=== PATIENT | male | born 1950 | race Two or more races ===

== ENCOUNTER 2021-11-18 22:57 | Inpatient (IN) | payer MEDICAID ==
[~2021-11-18] VITALS: Ht 170.2 cm; Wt 63.5 kg
--- NOTE | 2021-11-18 23:10 | NUR ---
Dr. Gonzales at bedside for MSE.
[2021-11-18] MEDS ORDERED: ONDANSETRON HCL 4 MG TABLET PO ONE (23:15)
[2021-11-18] MEDS ORDERED: ONDANSETRON 4 MG/2 ML VIAL IV ONE (23:30)
[2021-11-18] MEDS ORDERED: ONDANSETRON 4 MG/2 ML VIAL ONE (23:33)
--- NOTE | 2021-11-18 23:38 | NUR ---
Xray at bedside.
[2021-11-18 23:40] LABS: HEMATOCRIT 26.5 % (36.7-47.1); MEAN CORPUSCULAR HEMOGLOBIN 35.7 uug (23.8-33.4); MEAN CORPUSCULAR VOLUME 101.2 fL (73.0-96.2); PLATELET COUNT (AUTO) 100 K/uL (152-348)
[2021-11-18] MEDS ORDERED: PANTOPRAZOLE SODIUM IV 80 MG in IV DEXTROSE 5% 500 ML IV ONE (23:45)
[2021-11-18] MEDS ORDERED: PANTOPRAZOLE SODIUM IV 40 MG in IV DEXTROSE 5% 100 ML IV ONE (23:45)
--- NOTE | 2021-11-18 23:45 | NUR ---
Pt out of ER for CT.
[2021-11-18] MEDS ORDERED: PANTOPRAZOLE SODIUM 40 MG VIAL ONE ×2 (23:46→23:47)
[2021-11-18 23:54] LABS: ALANINE AMINOTRANSFERASE 38 U/L (16-63); ALKALINE PHOSPHATASE 204 U/L (50-136); ASPARTATE AMINOTRANSFERASE 42 U/L (15-37); BILIRUBIN,DIRECT 0.3 mg/dL (0.0-0.2); BILIRUBIN,TOTAL 0.7 mg/dL (0.2-1.0); CARBON DIOXIDE 24 mmol/L (21-32); CHLORIDE 107 mmol/L (98-107); CREATININE 1.2 mg/dL (0.6-1.3); GLUCOSE 186 mg/dL (74-106); TOTAL PROTEIN, SERUM 5.8 g/dL (6.4-8.2); UREA NITROGEN, BLOOD 30 mg/dL (7-18)
[2021-11-18 23:56] LABS: POTASSIUM 6.2 mmol/L (3.5-5.1)
[2021-11-19] MEDS ORDERED: GLIP5TAB13 PO (00:06)
[2021-11-19] MEDS ORDERED: SPIR50TA5 PO (00:06)
[2021-11-19] MEDS ORDERED: MAGN400T8 PO (00:06)
[2021-11-19] MEDS ORDERED: PROP20TA7 PO (00:06)
[2021-11-19] MEDS ORDERED: LACT10SO3 PO (00:06)
--- NOTE | 2021-11-19 00:13 | NUR ---
Paged Dr Cueva for nephrology consult.
[2021-11-19] MEDS ORDERED: OCTREOTIDE ACETATE DRIP 500 MCG in IV NORMAL SALINE 99 ML IV PRN (00:15)
[2021-11-19] MEDS ORDERED: IV NORMAL SALINE 1000 ML BAG IV ONE (00:15)
[2021-11-19] MEDS ORDERED: OCTREOTIDE ACETATE 100 MCG/1 MLVIAL IV ONE (00:15)
[2021-11-19] MEDS ORDERED: OCTREOTIDE ACETATE 50 MCG/1 ML ML ONE (00:52)
[2021-11-19] MEDS ORDERED: OCTREOTIDE ACETATE 500 MCG/1 ML VIAL ONE (00:52)
[2021-11-19] MEDS ORDERED: SODIUM POLYSTYRENE SULFONATE 15 G/60 ML LIQUID UDC PO ONE (01:30)
[2021-11-19] MEDS ORDERED: CALCIUM CHLORIDE 1 GM/10 ML DISP.SYRIN IVP ONE ×2 (01:30→01:42)
[2021-11-19] MEDS ORDERED: DEXTROSE 50% 50 ML DISP.SYRIN IV ONE (01:30)
[2021-11-19] MEDS ORDERED: SODIUM BICARBONATE 8.4% 50 MEQ/50 ML DISP.SYRIN IV ONE ×2 (01:30→01:42)
[2021-11-19] MEDS ORDERED: INSULIN REGULAR, HUMAN 300 UNIT/3 ML VIAL IV ONE (01:30)
--- NOTE | 2021-11-19 01:32 | NUR ---
Dr. Gonzales on panel call with Dr. Chan.
[2021-11-19] MEDS ORDERED: DEXTROSE 50% 50 ML DISP.SYRIN ONE (01:41)
[2021-11-19] MEDS ORDERED: INSULIN REGULAR, HUMAN 300 UNIT/3 ML VIAL ONE (01:41)
[2021-11-19] MEDS ORDERED: SODIUM POLYSTYRENE SULFONATE 15 G/60 ML LIQUID UDC ONE (01:44)
[2021-11-19] MEDS ORDERED: REMEDY ESSENTIAL ZINC PASTE 113 GM TP PRN (01:45)
[2021-11-19] MEDS: PANTOPRAZOLE SODIUM IV 80 MG in IV DEXTROSE 5% 500 ML IV SCH ×2 (01:45→08:00)
[2021-11-19] MEDS ORDERED: ONDANSETRON 4 MG/2 ML VIAL IV PRN (01:45)
[2021-11-19] MEDS ORDERED: MAGNESIUM HYDROXIDE 30 ML LIQUID UDC PO PRN (01:45)
[2021-11-19] MEDS ORDERED: ACETAMINOPHEN 325 MG TABLET PO PRN (01:45)
[2021-11-19 01:46] LABS: HEMATOCRIT 24.9 % (36.7-47.1); MEAN CORPUSCULAR VOLUME 101.8 fL (73.0-96.2); PLATELET COUNT (AUTO) 87 K/uL (152-348)
[2021-11-19 05:43] LABS: HEMATOCRIT 23.9 % (36.7-47.1); MEAN CORPUSCULAR HEMOGLOBIN 36.3 uug (23.8-33.4); MEAN CORPUSCULAR VOLUME 101.3 fL (73.0-96.2); PLATELET COUNT (AUTO) 85 K/uL (152-348)
[2021-11-19 05:54] LABS: BILIRUBIN,TOTAL 0.9 mg/dL (0.2-1.0); CREATININE 1.3 mg/dL (0.6-1.3); POTASSIUM 5.2 mmol/L (3.5-5.1); TOTAL PROTEIN, SERUM 5.8 g/dL (6.4-8.2)
[2021-11-19] MEDS ORDERED: ONDANSETRON 4 MG/2 ML VIAL ONE (06:26)
[2021-11-19] MEDS: IV D5 1/2 NS 1000 ML 1,000 ML IV PRN ×2 (07:23→21:34)
--- NOTE | 2021-11-19 07:33 | NUR ---
SBAR report recive from assembly hand Freddy/CHRIS
[2021-11-19 08:00] VITALS: BP 121/60
[2021-11-19] MEDS: OCTREOTIDE ACETATE DRIP 500 MCG in IV NORMAL SALINE 99 ML IV PRN (08:01)
--- NOTE | 2021-11-19 08:15 | NUR ---
SBAR REPORT GIVEN TO HOMER/RN
--- NOTE | 2021-11-19 08:30 | NUR ---
PT.TX TO ROOM 327,TOLERATED WELL,NO S/S OF DISTRESS.
--- NOTE | 2021-11-19 09:00 | NUR ---
Admitted to TELE snr @ 60's and low 70's. Body check done skin intact. Sandostatin and Protonix IV drip running as ordered. PT Portuguese speaking but able to make his needs know. Per daughter pt is more confused than usual but pt is Alert to his name and place. Monitor pt for bleeding implemented.
[2021-11-19 09:07] VITALS: BP 102/47
[2021-11-19 12:14] VITALS: BP 110/68
[2021-11-19] MEDS ORDERED: CEFTRIAXONE 1 G VIAL IV SCH (12:30)
[2021-11-19 12:45] LABS: HEMATOCRIT 23.5 % (36.7-47.1)
[2021-11-19] MEDS: CEFTRIAXONE 1 G in IV DEXTROSE 5% 50 ML IV SCH (14:06)
[2021-11-19] MEDS ORDERED: EPHEDRINE SULFATE 50 MG/ML AMPUL ONE (15:14)
[2021-11-19] MEDS ORDERED: LIDOCAINE-MPF 2% 5 ML VIAL ONE (15:14)
[2021-11-19] MEDS ORDERED: PROPOFOL 200 MG/20 ML BOTTLE ONE (15:14)
--- NOTE | 2021-11-19 16:05 | NUR ---
Patient complained of chest pain. Pt reported muscle pain increased when inhaling and relieved when exhalinng No changed on tele noted. No ectopy on tele. BP 126/53. Monitored accordingly. Call light in reach.
[2021-11-19 16:36] VITALS: BP 130/48
[2021-11-19 18:11] LABS: HEMATOCRIT 23.3 % (36.7-47.1)
--- NOTE | 2021-11-19 19:30 | NUR ---
Received patient lying in bed. Family at bedside. Patient appears weak, but arouse to verbal stimuli. In no apparent distress. On O2 at 2LPM via NC in place. Denies any pain or SOB. IV site on right FA and left FA intact and patent. IVF infusing on left FA and Sandostatin infusing on right FA. Needs assessed and attended to. Safety measure initiated and call light within reached.
[2021-11-19 20:00] VITALS: BP 121/60
[2021-11-19] MEDS: PANTOPRAZOLE SODIUM 40 MG VIAL IV SCH (20:19)
[2021-11-19] MEDS ORDERED: DEXTROSE 50% 50 ML DISP.SYRIN IV PRN (21:15)
[2021-11-19] MEDS: PROPRANOLOL HCL 10 MG TABLET PO SCH (21:25)
[2021-11-19] MEDS: BLOOD SUGAR DIAGNOSTIC 1 EACH STRIP VI SCH (21:25)
[2021-11-19] MEDS: INSULIN REGULAR, HUMAN 300 UNITS/3 ML VIAL SQ PRN (21:26)
[2021-11-19 21:35] VITALS: BP 121/60
[2021-11-20 00:35] VITALS: BP 130/64
[2021-11-20] MEDS: OCTREOTIDE ACETATE DRIP 500 MCG in IV NORMAL SALINE 99 ML IV PRN (01:47)
[2021-11-20 02:59] LABS: HEMATOCRIT 24.1 % (36.7-47.1)
[2021-11-20 05:02] VITALS: BP 119/53
--- NOTE | 2021-11-20 05:38 | NUR ---
Patient slept well during the night. In no acute distress. Denies any pain or SOB. O2 sat at 98% on RA. Denies any pain or SOB. IV site on right FA and left FA intact and patent. IVF continue to infuse on left FA and Sandostatin infusing on right FA. Needs attended to and met. Safety measure maintained and call light within reached.
[2021-11-20] MEDS: IV D5 1/2 NS 1000 ML 1,000 ML IV PRN (05:44)
[2021-11-20] MEDS: glipiZIDE 5 MG TABLET PO SCH ×2 (06:31→17:15)
[2021-11-20] MEDS: BLOOD SUGAR DIAGNOSTIC 1 EACH STRIP VI SCH ×4 (06:31→21:24)
[2021-11-20 07:37] LABS: HEMATOCRIT 23.5 % (36.7-47.1); MEAN CORPUSCULAR HEMOGLOBIN 36.4 uug (23.8-33.4); PLATELET COUNT (AUTO) 80 K/uL (152-348)
[2021-11-20 08:00] VITALS: BP 129/59
[2021-11-20 08:00] LABS: BILIRUBIN,TOTAL 0.8 mg/dL (0.2-1.0); CREATININE 1.3 mg/dL (0.6-1.3); PHOSPHOROUS 2.5 mg/dL (2.5-4.9); POTASSIUM 4.3 mmol/L (3.5-5.1); TOTAL PROTEIN, SERUM 5.6 g/dL (6.4-8.2)
--- NOTE | 2021-11-20 08:00 | NUR ---
Pt c/o chest pain. Described as "aching" denies any radiating pain to left arm . Pt states that his chest pain is all over his chest and points to his epigastric area. Also pain is increased when inhaling on the left chest wall. EKG done tropin ordered VSS 130/59-60- 99% on r/a. resp 18. NO ectopy on monitor. @820 DR Mora saw patient.
[2021-11-20 08:03] LABS: THYROID STIMULATING HORMONE 0.518 mIU/mL (0.358-3.740)
[2021-11-20 08:07] LABS: MAGNESIUM 1.2 mg/dL (1.8-2.4)
[2021-11-20] MEDS: PANTOPRAZOLE SODIUM 40 MG VIAL IV SCH ×2 (09:00→21:24)
[2021-11-20] MEDS: MAGNESIUM OXIDE 400 MG TABLET PO SCH (09:00)
[2021-11-20] MEDS: PROPRANOLOL HCL 10 MG TABLET PO SCH ×2 (09:00→21:24)
[2021-11-20] MEDS: LACTULOSE 20 G/30 ML LIQUID UDC PO SCH ×3 (09:00→17:15)
[2021-11-20] MEDS: SPIRONOLACTONE 50 MG TABLET PO SCH (09:00)
[2021-11-20] MEDS: INSULIN REGULAR, HUMAN 300 UNIT/3 ML VIAL SQ PRN ×3 (09:13→17:28)
[2021-11-20 11:32] LABS: LYMPHOCYTES % (MANUAL) 19 % (20-40); MONOCYTES % (MANUAL) 2 % (2-10); NEUTROPHILS % (MANUAL) 79 % (42-75)
[2021-11-20 12:00] VITALS: BP 110/50
[2021-11-20] MEDS ORDERED: FLEET ENEMA 133 ML BOTTLE RC ONE (12:30)
[2021-11-20] MEDS: RIFAXIMIN 550 MG TABLET PO SCH ×2 (13:12→21:24)
[2021-11-20] MEDS: CEFTRIAXONE 1 G in IV DEXTROSE 5% 50 ML IV SCH (13:13)
--- NOTE | 2021-11-20 15:00 | NUR ---
pT HAD A VERY LARGE BM colored black. rechecked h/h @ 2953.
[2021-11-20 16:00] VITALS: BP 112/56
--- NOTE | 2021-11-20 18:00 | NUR ---
Pt is in no acute distress. Call light is within reach. no further bm noted. bm x 1 today large black. IVF d/c as ordered.
--- NOTE | 2021-11-20 19:10 | NUR ---
RECEIVED PATIENT IN BED. AWAKE, ALERT, ORIENTED, [place] SPEAKING. SINUS RHYTHM ON TELEMONITOR, 75BPM. ON 2L O2, SATURATING AT 99%. IV ACCESS ON LFA PATENT AND INTACT. REMOVED RFA IV ACCESS. BLACK TARRY STOOLS NOTED. H & H TO BE DONE AT 2300 PER MD ORDER. SAFETY PRECAUTIONS MAINTAINED. CLOSELY MONITORED.
[2021-11-20 20:00] VITALS: BP 101/65
[2021-11-20] MEDS: INSULIN REGULAR, HUMAN 300 UNITS/3 ML VIAL SQ PRN (21:26)
[2021-11-20] MEDS ORDERED: MAGNESIUM SULFATE/D5W 400 ML ONE (22:02)
--- NOTE | 2021-11-20 22:10 | NUR ---
PATIENT STARTED ON IV MAGNESIUM REPLACEMENT, 1G IN 100ML D5W 4 BAGS TO BE INFUSED DUE TO PT BEING HYPOMAGNESEMIC.
[2021-11-20] MEDS: MAGNESIUM SULFATE/D5W 100 ML IV SCH ×2 (22:17→23:58)
[2021-11-20 23:09] LABS: HEMATOCRIT 25.7 % (36.7-47.1)
[2021-11-21] VITALS: BP 108/50
[2021-11-21] MEDS: MAGNESIUM SULFATE/D5W 100 ML IV SCH ×2 (01:05→02:08)
[2021-11-21 04:00] VITALS: BP 110/62
[2021-11-21] MEDS ORDERED: OCTREOTIDE ACETATE 500 MCG/1 ML VIAL ONE (04:19)
--- NOTE | 2021-11-21 05:56 | NUR ---
PATIENT SLEPT THROUGH THE NIGHT. INFUSED 4 BAGS OF 1G MAGNESIUM IN 100ML D5W, PT TOLERATED WELL. IV ACCESS PATENT AND INTACT. PT HAD A COUPLE OF EPISODES OF LOOSE WATERY STOOLS. NO SIGNS OF BLEEDING OR BLACK TARRY STOOL NOTED AT THIS TIME. SAFETY PRECAUTIONS MAINTAINED. ALL NEEDS ATTENDED TO AND MET. WILL ENDORSE TO DAY SHIFT.
[2021-11-21] MEDS: BLOOD SUGAR DIAGNOSTIC 1 EACH STRIP VI SCH ×3 (06:31→16:30)
[2021-11-21 06:49] LABS: HEMATOCRIT 24.2 % (36.7-47.1)
[2021-11-21 07:04] LABS: CREATININE 1.3 mg/dL (0.6-1.3); MAGNESIUM 2.3 mg/dL (1.8-2.4); POTASSIUM 3.7 mmol/L (3.5-5.1)
--- NOTE | 2021-11-21 08:00 | NUR ---
AWAKE ALERT AND ORIENTED X3, SPEAKS [place]ORE[place] AND REQUIRES SET AND EXHIBIT DESIGNER. REQUIRES MIN MOD ASSIST WITH ADLS. SR ON MONITOR
[2021-11-21] MEDS: MAGNESIUM OXIDE 400 MG TABLET PO SCH (09:30)
[2021-11-21] MEDS: SPIRONOLACTONE 50 MG TABLET PO SCH (09:30)
[2021-11-21] MEDS: LACTULOSE 20 G/30 ML LIQUID UDC PO SCH ×3 (09:30→16:49)
[2021-11-21] MEDS: PANTOPRAZOLE SODIUM 40 MG VIAL IV SCH (09:30)
[2021-11-21] MEDS: RIFAXIMIN 550 MG TABLET PO SCH (09:31)
[2021-11-21] MEDS: glipiZIDE 5 MG TABLET PO SCH ×2 (09:35→16:47)
[2021-11-21] MEDS: PROPRANOLOL HCL 10 MG TABLET PO SCH (09:37)
[2021-11-21 11:13] VITALS: BP 123/54
[2021-11-21] MEDS: INSULIN REGULAR, HUMAN 300 UNIT/3 ML VIAL SQ PRN (11:56)
--- NOTE | 2021-11-21 12:00 | NUR ---
SEEN BY HOSPITALIST WITH ORDERS FOR DISCHARGE, PHLEBOTOMY INSTRUCTOR SO WITH FAMILY MADE AWARE
[2021-11-21] MEDS: CEFTRIAXONE 1 G in IV DEXTROSE 5% 50 ML IV SCH (13:20)
[2021-11-21] MEDS: OCTREOTIDE ACETATE DRIP 500 MCG in IV NORMAL SALINE 99 ML IV PRN (13:42)
[2021-11-21] MEDS ORDERED: RIFA550T PO (14:28)
[2021-11-21 15:12] VITALS: BP 103/61
--- NOTE | 2021-11-21 17:15 | NUR ---
DISCHARGED HOME STABLE ACCOMPANIED BY FAMILY. MEDICATION AND FOLLOW-UP INSTRUCTION GIVEN TO FAMILY
== END 2021-11-21 17:15 | disposition home or self-care (01) | DRG 280 ==
LOC: ER 23:01 → TELE-TD3 11-19 08:12 → TELE3 11-20 12:45
PROVIDERS: ADMIT Student in an Organized Health Care Education/Training Program; ATTEND Internal Medicine
PROC: 06L38CZ Occlusion of Esophageal Vein with Extraluminal Device, Via Natural or Artificial Opening Endoscopic (ICD-10-PCS; principal; 2021-11-19)
DX: K70.30 Alcoholic cirrhosis of liver without ascites (principal); N17.0 Acute kidney failure with tubular necrosis; I85.11 Secondary esophageal varices with bleeding; E43 Unspecified severe protein-calorie malnutrition; K72.90 Hepatic failure, unspecified without coma; D69.6 Thrombocytopenia, unspecified; K76.6 Portal hypertension; D62 Acute posthemorrhagic anemia; K26.9 Duodenal ulcer, unspecified as acute or chronic, without hemorrhage or perforation; J84.9 Interstitial pulmonary disease, unspecified; K31.89 Other diseases of stomach and duodenum; E53.0 Riboflavin deficiency; E11.65 Type 2 diabetes mellitus with hyperglycemia; Z79.84 Long term (current) use of oral hypoglycemic drugs; E87.5 Hyperkalemia; I44.7 Left bundle-branch block, unspecified; K57.30 Diverticulosis of large intestine without perforation or abscess without bleeding; Z85.05 Personal history of malignant neoplasm of liver; Z92.21 Personal history of antineoplastic chemotherapy; I25.10 Atherosclerotic heart disease of native coronary artery without angina pectoris; I10 Essential (primary) hypertension; R55 Syncope and collapse
CPT/HCPCS: 36415; 70030-TC; 70450; 71045; 74018; 83605; 83735; 84100; 84443; 84484; 85018; 85025; 85730; 86850; 86900; 86901; 87040; 93005; 93307; A4663; C9113; G0378; J0696; J1815; J2354; J2405; J3475; J3490; J7040; J7060